=== PATIENT | female | born 1985 | race Caucasian/White ===

== ENCOUNTER 2018-02-16 23:49 | Inpatient (IN) | payer OTHER ==
[2018-02-17] MEDS ORDERED: ACETAMINOPHEN 325 MG TAB PO (02:00)
[2018-02-17] MEDS: morphine 2 MG INJ IV ×4 (02:12→20:07)
[2018-02-17] MEDS: CEFTRIAXONE 1 GM/50 ML (PMX) 50 ML IVPB (02:41)
[2018-02-17] MEDS: PANTOPRAZOLE 40 MG INJ IV (05:55)
[2018-02-17 06:07] LABS: ADD MAN DIFF? NO
[2018-02-17 06:11] LABS: BASOPHILS % 0.2 % (0.0-2.0); EOSINOPHILS % 0.4 % (0.0-7.0); HEMATOCRIT 29.6 % (37.0-47.0); HEMOGLOBIN 10.3 g/dl (12.0-16.0); LYMPHOCYTES # 2.9 10^3/ul (0.8-2.9); LYMPHOCYTES % 31.2 % (15.0-51.0); MEAN CORPUSCULAR HEMOGLOBIN 32.2 pg (29.0-33.0); MEAN CORPUSCULAR HGB CONC 34.8 g/dl (32.0-37.0); MEAN CORPUSCULAR VOLUME 92.5 fl (82.0-101.0); MEAN PLATELET VOLUME 10.8 fl (7.4-10.4); MONOCYTE # 0.7 10^3/ul (0.3-0.9); MONOCYTES % 7.4 % (0.0-11.0); NEUTROPHIL # 5.6 10^3/ul (1.6-7.5); NEUTROPHILS % 60.3 % (39.0-77.0); PLATELET COUNT 214 10^3/UL (140-415); RED CELL DISTRIBUTION WIDTH 11.9 % (11.5-14.5)
[2018-02-17 06:11] LABS: WHITE BLOOD COUNT 9.4 10^3/ul (4.8-10.8)
[2018-02-17 07:15] LABS: ALANINE AMINOTRANSFERASE 21 IU/L (13-69); ALBUMIN 3.3 g/dl (3.3-4.9); ALKALINE PHOSPHATASE 68 IU/L (42-121); ANION GAP 9 (8-16); ASPARTATE AMINO TRANSFERASE 18 IU/L (15-46); BILIRUBIN,INDIRECT 0.7 mg/dl (0-1.1); BILIRUBIN,TOTAL 0.7 mg/dl (0.2-1.3); BLOOD UREA NITROGEN 6 mg/dl (7-20); CARBON DIOXIDE 26 mmol/L (21-31); CHLORIDE 109 mmol/L (97-110); CREATININE 0.59 mg/dl (0.44-1.00); GLUCOSE 96 mg/dl (70-220); POTASSIUM 3.1 mmol/L (3.5-5.1); SODIUM 141 mmol/L (135-144); TOTAL PROTEIN 6.3 g/dl (6.1-8.1)
[2018-02-17] MEDS: POTASSIUM CHLORIDE (SR) 20 MEQ TAB PO (14:26)
[2018-02-17] MEDS: SOD CHLORIDE 0.9% 1,000 ML IV (14:27)
[2018-02-17] MEDS: SOD CHLORIDE 0.9% 100 ML (16:38)
[2018-02-17] MEDS: IOHEXOL 300MG/ML 150 ML BTL (16:38)
[2018-02-17 19:58] LABS: ADD UMIC NO; UR ASCORBIC ACID NEGATIVE (NEGATIVE); UR BILIRUBIN (Dip) NEGATIVE (NEGATIVE); UR BLOOD (Dip) NEGATIVE (NEGATIVE); UR CLARITY CLEAR (CLEAR); UR COLOR YELLOW (YELLOW); UR GLUCOSE (Dip) NEGATIVE (NEGATIVE); UR KETONES (Dip) 1+ mg/dL (NEGATIVE); UR LEUKOCYTE ESTERASE (Dip) NEGATIVE Leu/ul (NEGATIVE); UR NITRITE (Dip) NEGATIVE (NEGATIVE); UR SPECIFIC GRAVITY (Dip) 1.012 (1.003-1.030); UR TOTAL PROTEIN (Dip) NEGATIVE (NEGATIVE); UR UROBILINOGEN (Dip) NEGATIVE (NEGATIVE)
[2018-02-17 22:25] LABS: HEMOGLOBIN 10.2 g/dl (12.0-16.0)
[2018-02-18] MEDS: CEFTRIAXONE 1 GM/50 ML (PMX) 50 ML IVPB (02:44)
[2018-02-18] MEDS: SOD CHLORIDE 0.9% 1,000 ML IV ×3 (05:19→21:12)
[2018-02-18] MEDS: PANTOPRAZOLE 40 MG INJ IV (05:19)
[2018-02-18] MEDS: morphine 2 MG INJ IV (10:29)
[2018-02-18 11:38] LABS: HEMATOCRIT 30.3 % (37.0-47.0); HEMOGLOBIN 10.1 g/dl (12.0-16.0)
[2018-02-18] MEDS ORDERED: HYDROCODONE/APAP (5/325) TAB PO (13:00)
[2018-02-18] MEDS: ONDANSETRON 4 MG INJ IV (13:53)
[2018-02-18] MEDS: morphine LIQ (10 MG/5 ML) CUP PO ×2 (16:43→21:11)
[2018-02-19] MEDS: CEFTRIAXONE 1 GM/50 ML (PMX) 50 ML IVPB (02:40)
[2018-02-19 05:44] LABS: HEMATOCRIT 29.1 % (37.0-47.0); HEMOGLOBIN 9.9 g/dl (12.0-16.0)
[2018-02-19] MEDS: PANTOPRAZOLE 40 MG INJ IV (06:24)
[2018-02-19] MEDS: morphine LIQ (10 MG/5 ML) CUP PO (10:04)
[2018-02-19] MEDS: SOD CHLORIDE 0.9% 1,000 ML IV (13:29)
[2018-02-19] MEDS ORDERED: IBUPROFEN 400 MG TAB PO (15:30)
[2018-02-19] MEDS: HYDROCODONE/APAP (10/325) TAB PO (15:40)
[2018-02-20] MEDS: CEFTRIAXONE 1 GM/50 ML (PMX) 50 ML IVPB (02:24)
[2018-02-20] MEDS: SOD CHLORIDE 0.9% 1,000 ML IV ×2 (03:26→12:00)
[2018-02-20] MEDS: PANTOPRAZOLE 40 MG INJ IV (05:35)
[2018-02-20 06:52] LABS: HEMATOCRIT 29.5 % (37.0-47.0); HEMOGLOBIN 9.8 g/dl (12.0-16.0)
[2018-02-20] MEDS: DOCUSATE SODIUM 100 MG CAP PO (10:28)
== END 2018-02-20 15:45 | disposition home or self-care (01) | DRG 700 ==
LOC: MS2 23:49
DX: S37.022A Major contusion of left kidney, initial encounter (principal); E87.6 Hypokalemia; D17.71 Benign lipomatous neoplasm of kidney; R31.9 Hematuria, unspecified; X58.XXXA Exposure to other specified factors, initial encounter; Y93.89 Activity, other specified; Y92.9 Unspecified place or not applicable; Y99.8 Other external cause status; Z90.710 Acquired absence of both cervix and uterus; Z85.41 Personal history of malignant neoplasm of cervix uteri
CPT/HCPCS: 74178; 76775; 80053; 81003; 85014; 85018; 85025; 87086